=== PATIENT | male | born 1955 | race Caucasian/White ===

== ENCOUNTER 2023-10-16 04:42 | Inpatient (IN) | payer OTHER ==
[2023-10-16 05:02] VITALS: BMI 55.2
[2023-10-16] MEDS: oxyCODONE HCL 5 MG TABLET PO PRN (10:02)
[2023-10-16] MEDS ORDERED: INSULIN (NOVOLOG) ASPART 100 UNITS/ML 10ML VIAL ONE ×2 (17:24→21:09)
[2023-10-16] MEDS: INSULIN ASPART SLIDING SCALE (NOVOLOG) 1 VIAL SQ SCH (17:38)
[2023-10-16] MEDS: RIVAROXABAN 20 MG TABLET PO SCH (17:38)
[2023-10-16 18:02] LABS: N-TERMINAL BNP 1730.9 pg/ml (5-125)
[2023-10-16] MEDS: DOCUSATE SODIUM 100 MG CAPSULE (FP) PO SCH (21:18)
[2023-10-16] MEDS: SENNOSIDES 8.6MG TABLET (FP) PO SCH (21:18)
[2023-10-16] MEDS: POLYETHYLENE GLYCOL (HEALTHYLAX) 3350 17 GM PACKET PO SCH (21:24)
[2023-10-16] MEDS: BUDESONIDE/FORMETEROL FUMARATE 160/4.5 mcg INHALER IH SCH (21:26)
[2023-10-17 09:14] LABS: BASO % 0.6 % (0-2.0); EOS % 2.7 % (0-4.5); HEMATOCRIT 37.8 % (35.4-49); LYMPH % 22.9 % (8-40); MCH 25.2 pg (25.7-33.7); MCHC 31.6 g/dl (32.0-35.9); MEAN CELL VOLUME 79.6 fl (80-96); MEAN PLT VOLUME 7.1 fl (7.5-11.1); NEUT % 68.8 % (42.8-82.8); PLATELET COUNT 337 10^3/uL (134-434); RBC 4.74 M/mm3 (4.00-5.60); RDW 16.1 % (11.9-15.9); WHITE BLOOD COUNT 12.6 K/mm3 (4.0-10.0)
[2023-10-17 09:29] LABS: POTASSIUM 4.1 mmol/L (3.5-5.1)
[2023-10-17 09:32] LABS: CALCIUM 8.6 mg/dL (8.5-10.1)
[2023-10-17 09:33] LABS: ALBUMIN 2.3 g/dl (3.4-5.0); BLOOD UREA NITROGEN 15.1 mg/dL (7-18)
[2023-10-17 09:35] LABS: CREATININE 0.7 mg/dL (0.55-1.3)
[2023-10-17 09:37] LABS: BILIRUBIN,TOTAL 0.4 mg/dL (0.2-1); TOT PROT 6.2 g/dl (6.4-8.2)
[2023-10-17] MEDS: CLOTRIMAZOLE 1% CREAM TP SCH (10:54)
[2023-10-17] MEDS: FUROSEMIDE 40 MG TABLET (FP) PO SCH (10:55)
[2023-10-17] MEDS ORDERED: LISINOPRIL 10 MG TABLET PO SCH (14:00)
[2023-10-17] MEDS ORDERED: FUROSEMIDE 40 MG TABLET (FP) PO SCH (14:00)
[2023-10-17] MEDS ORDERED: CARVEDILOL 25 MG TABLET (FP) PO SCH (14:00)
[2023-10-17] MEDS ORDERED: ALBUTEROL SO4 2.5/IPRATROPIUM 0.5 INH SOL 3 ML VIAL.NEB. NEB PRN (14:10)
[2023-10-17] MEDS: ASPIRIN 81 MG CHEWABLE TABLETS PO SCH (15:27)
[2023-10-17] MEDS ORDERED: INSULIN (NOVOLOG) ASPART 100 UNITS/ML 10ML VIAL ONE (21:59)
[2023-10-17] MEDS: INSULIN (LEVEMIR) 100 UNITS/ML UNITS SQ SCH (22:12)
[2023-10-18 08:02] LABS: POTASSIUM 4.1 mmol/L (3.5-5.1)
[2023-10-18 08:03] LABS: BASO % 0.6 % (0-2.0); CALCIUM 8.9 mg/dL (8.5-10.1); EOS % 2.8 % (0-4.5); HEMATOCRIT 37.2 % (35.4-49); LYMPH % 27.5 % (8-40); MCH 25.9 pg (25.7-33.7); MCHC 32.3 g/dl (32.0-35.9); MEAN CELL VOLUME 80.2 fl (80-96); MEAN PLT VOLUME 6.8 fl (7.5-11.1); NEUT % 63.1 % (42.8-82.8); PLATELET COUNT 327 10^3/uL (134-434); RBC 4.64 M/mm3 (4.00-5.60); RDW 16.1 % (11.9-15.9); WHITE BLOOD COUNT 10.9 K/mm3 (4.0-10.0)
[2023-10-18 08:04] LABS: BLOOD UREA NITROGEN 14.3 mg/dL (7-18)
[2023-10-18 08:07] LABS: CREATININE 0.8 mg/dL (0.55-1.3)
[2023-10-18] MEDS ORDERED: INSULIN (NOVOLOG) ASPART 100 UNITS/ML 10ML VIAL ONE ×2 (18:15→21:23)
[2023-10-19] MEDS: CARVEDILOL 3.125 MG TABLET (FP) PO SCH
[2023-10-19] MEDS: MINERAL OIL/PET HY-PHL TOPICAL OINTMENT 454 GM JAR TP SCH
[2023-10-19 08:40] LABS: BASO % 0.8 % (0-2.0); EOS % 4.3 % (0-4.5); HEMOGLOBIN 11.9 GM/dL (11.7-16.9); LYMPH % 32.1 % (8-40); MCH 25.8 pg (25.7-33.7); MCHC 32.2 g/dl (32.0-35.9); MEAN CELL VOLUME 80.2 fl (80-96); MEAN PLT VOLUME 6.8 fl (7.5-11.1); MONO % 6.5 % (3.8-10.2); NEUT % 56.3 % (42.8-82.8); PLATELET COUNT 320 10^3/uL (134-434); RBC 4.61 M/mm3 (4.00-5.60); RDW 16.3 % (11.9-15.9); WHITE BLOOD COUNT 10.6 K/mm3 (4.0-10.0)
[2023-10-19 08:58] LABS: POTASSIUM 4.2 mmol/L (3.5-5.1)
[2023-10-19 09:04] LABS: CALCIUM 9.1 mg/dL (8.5-10.1)
[2023-10-19 09:05] LABS: ALBUMIN 2.4 g/dl (3.4-5.0); BLOOD UREA NITROGEN 12.6 mg/dL (7-18); MAGNESIUM 1.8 mg/dL (1.8-2.4)
[2023-10-19 09:08] LABS: CREATININE 0.7 mg/dL (0.55-1.3)
[2023-10-19 09:10] LABS: BILIRUBIN,TOTAL 0.4 mg/dL (0.2-1); TOT PROT 6.4 g/dl (6.4-8.2)
[2023-10-19] MEDS ORDERED: INSULIN (NOVOLOG) ASPART 100 UNITS/ML 10ML VIAL ONE ×2 (16:18→21:15)
[2023-10-20 08:21] LABS: POTASSIUM 4.2 mmol/L (3.5-5.1)
[2023-10-20 08:27] LABS: ALBUMIN 2.5 g/dl (3.4-5.0); CALCIUM 8.6 mg/dL (8.5-10.1); MAGNESIUM 1.6 mg/dL (1.8-2.4)
[2023-10-20 08:30] LABS: BASO % 0.4 % (0-2.0); CREATININE 0.7 mg/dL (0.55-1.3); EOS % 3.8 % (0-4.5); HEMATOCRIT 36.1 % (35.4-49); HEMOGLOBIN 12.1 GM/dL (11.7-16.9); LYMPH % 30.7 % (8-40); MCH 26.3 pg (25.7-33.7); MCHC 33.4 g/dl (32.0-35.9); MEAN CELL VOLUME 78.9 fl (80-96); MEAN PLT VOLUME 6.9 fl (7.5-11.1); MONO % 7.3 % (3.8-10.2); NEUT % 57.8 % (42.8-82.8); PLATELET COUNT 318 10^3/uL (134-434); RBC 4.58 M/mm3 (4.00-5.60); RDW 16.3 % (11.9-15.9); WHITE BLOOD COUNT 9.8 K/mm3 (4.0-10.0)
[2023-10-20 08:32] LABS: BILIRUBIN,TOTAL 0.5 mg/dL (0.2-1); TOT PROT 6.1 g/dl (6.4-8.2)
[2023-10-20] MEDS: MAGNESIUM OXIDE 400 MG TABLET (FP) PO SCH (10:00)
[2023-10-20] MEDS ORDERED: INSULIN (NOVOLOG) ASPART 100 UNITS/ML 10ML VIAL ONE (22:05)
[2023-10-21] MEDS: INSULIN ASPART SLIDING SCALE (NOVOLOG) 1 VIAL SQ SCH (17:30)
[2023-10-22] MEDS ORDERED: INSULIN (NOVOLOG) ASPART 100 UNITS/ML 10ML VIAL ONE ×4 (12:10→21:04)
[2023-10-22] MEDS: INSULIN ASPART SLIDING SCALE (NOVOLOG) 1 VIAL SQ SCH (21:47)
[2023-10-22] MEDS: INSULIN (LEVEMIR) 100 UNITS/ML UNITS SQ SCH (21:47)
[2023-10-23 14:26] VITALS: BP 136/83; PULSE 78; RESP 20; TEMP 97.7
== END 2023-10-23 15:47 | DRG 391 ==
LOC: JER 04:42 → JERBED 05:27 → OBSVTOIN 09:55 → J7W 12:21
PROVIDERS: ATTEND Nurse Practitioner Acute Care
DX: K59.00 Constipation, unspecified (principal); R53.2 Functional quadriplegia; Z68.42 Body mass index [BMI] 45.0-49.9, adult; I50.32 Chronic diastolic (congestive) heart failure; Z60.9 Problem related to social environment, unspecified; J44.9 Chronic obstructive pulmonary disease, unspecified; F32.A Depression, unspecified; E78.5 Hyperlipidemia, unspecified; G47.33 Obstructive sleep apnea (adult) (pediatric); I12.9 Hypertensive chronic kidney disease with stage 1 through stage 4 chronic kidney disease, or unspecified chronic kidney disease; E11.22 Type 2 diabetes mellitus with diabetic chronic kidney disease; N18.9 Chronic kidney disease, unspecified; E66.01 Morbid (severe) obesity due to excess calories; K58.9 Irritable bowel syndrome, unspecified; F39 Unspecified mood [affective] disorder; I48.91 Unspecified atrial fibrillation
CPT/HCPCS: 0241U-QW; 36415; 71045-TC-FY; 73630-TC-LT; 80048; 80053; 82272; 82550; 82803; 82962; 83036; 83605; 83735; 83880; 84439; 84443; 84484; 85025; 85610; 85730; 86850; 86900; 86901; 87040; 87635; 93005; 93010; 93306-TC; 94010; 97161-GP; 99285-25; G0378; J0875

== ENCOUNTER 2024-06-22 17:43 | Inpatient (IN) | payer OTHER ==
[2024-06-22 18:12] VITALS: BMI 51.3
[2024-06-22 21:27] LABS: POTASSIUM 4.6 mmol/L (3.5-5.1)
[2024-06-22] MEDS ORDERED: oxyCODONE HCL 5 MG TABLET ONE (21:28)
[2024-06-22 21:29] LABS: ALBUMIN 2.3 g/dl (3.4-5.0); BLOOD UREA NITROGEN 13.6 mg/dL (7-18); CALCIUM 8.6 mg/dL (8.5-10.1)
[2024-06-22 21:32] LABS: CREATININE 0.8 mg/dL (0.55-1.3)
[2024-06-22 21:34] LABS: BILIRUBIN,TOTAL 0.5 mg/dL (0.2-1); TOT PROT 6.4 g/dl (6.4-8.2)
[2024-06-22] MEDS: oxyCODONE HCL 5 MG TABLET PO ONE (21:40)
[2024-06-22 21:54] LABS: BASO % 0.4 % (0-2.0); EOS % 2.1 % (0-4.5); HEMATOCRIT 36.8 % (35.4-49); HEMOGLOBIN 11.9 GM/dL (11.7-16.9); LYMPH % 18.5 % (8-40); MCH 25.1 pg (25.7-33.7); MCHC 32.2 g/dl (32.0-35.9); MEAN CELL VOLUME 78.1 fl (80-96); MEAN PLT VOLUME 6.5 fl (7.5-11.1); MONO % 5.2 % (3.8-10.2); NEUT % 73.8 % (42.8-82.8); PLATELET COUNT 294 10^3/uL (134-434); RBC 4.72 M/mm3 (4.00-5.60); RDW 14.1 % (11.9-15.9)
[2024-06-23] MEDS: ACETAMINOPHEN 1000 MG/100 ML BAG IVPB ONE (02:35)
[2024-06-23] MEDS: oxyCODONE HCL 5 MG TABLET PO PRN (02:48)
[2024-06-23] MEDS: MELATONIN 5 MG TABLETS PO ONE (02:48)
[2024-06-23] MEDS: INSULIN ASPART SLIDING SCALE (NOVOLOG) 1 VIAL SQ SCH (06:26)
[2024-06-23 08:38] LABS: HEMATOCRIT 35.9 % (35.4-49); HEMOGLOBIN 11.8 GM/dL (11.7-16.9); MCH 25.8 pg (25.7-33.7); MEAN CELL VOLUME 78.3 fl (80-96); PLATELET COUNT 280 10^3/uL (134-434); RBC 4.59 M/mm3 (4.00-5.60); RDW 14.2 % (11.9-15.9); WHITE BLOOD COUNT 10.1 K/mm3 (4.0-10.0)
[2024-06-23 09:01] LABS: POTASSIUM 3.4 mmol/L (3.5-5.1)
[2024-06-23 09:04] LABS: ALBUMIN 2.2 g/dl (3.4-5.0); BLOOD UREA NITROGEN 12.1 mg/dL (7-18); CALCIUM 8.6 mg/dL (8.5-10.1); MAGNESIUM 1.8 mg/dL (1.8-2.4)
[2024-06-23 09:06] LABS: CREATININE 0.7 mg/dL (0.55-1.3); PHOSPHOROUS 2.9 mg/dL (2.5-4.9)
[2024-06-23 09:09] LABS: BILIRUBIN,TOTAL 0.5 mg/dL (0.2-1)
[2024-06-23 09:45] LABS: ERYTHROCYTE SEDIMENTATION RATE 42 mm/hr (0-20)
[2024-06-23] MEDS ORDERED: ENOXAPARIN NA (PORCINE) 40 MG/0.4 ML DISP.SYRIN SQ SCH (10:00)
[2024-06-23] MEDS: VANCOMYCIN/WATER FOR INJ (PEG) 1,000 MG/200 ML BAG IVPB ONE (10:18)
[2024-06-23] MEDS: ASPIRIN 81 MG CHEWABLE TABLETS PO SCH (10:36)
[2024-06-23] MEDS: CARVEDILOL 3.125 MG TABLET (FP) PO SCH (10:36)
[2024-06-23] MEDS: PIPERACILLIN/TAZOB 3.375 GM 3.375 GM in DEXTROSE 5%-WATER - 50 ML IVPB ONE (11:33)
[2024-06-23] MEDS: CEFTRIAXONE 1 GM in DEXTROSE 5%-WATER - 50 ML IVPB SCH (11:34)
[2024-06-23] MEDS: POTASSIUM CHLORIDE TABS 20 MEQ TABLET.ER (FP) PO ONE ×2 (18:28→18:30)
[2024-06-23] MEDS: AMINO ACIDS/PROTEIN HYDROLYS 30 ML LIQUID.PKT PO SCH (18:29)
[2024-06-23] MEDS: NYSTATIN 100,000 UNIT/GM TOPICAL CREAM 15 GM TUBE TP SCH (18:29)
[2024-06-23] MEDS: ASCORBIC ACID 500 MG TABLET (FP) GT SCH (22:42)
[2024-06-24 01:12] LABS: EPI CELLS 8 /uL (0-25.1); HYALINE CASTS 0 /uL (0-3.1); URINE APPEARANCE CLOUDY; URINE BACTERIA 45 /uL (0-1359); URINE BILIRUBIN NEGATIVE (NEGATIVE); URINE COLOR YELLOW; URINE GLUCOSE (UA) 3+ (NEGATIVE); URINE KETONE NEGATIVE (NEGATIVE); URINE LEUK ESTERASE 2+ (NEGATIVE); URINE NITRITE NEGATIVE (NEGATIVE); URINE PROTEIN TRACE (NEGATIVE); URINE RBC 464 /uL (0-23.9); URINE UROBILINOGEN 0.2 mg/dL (0.2-1.0); URINE WBC 1631 /uL (0-25.8)
[2024-06-24] MEDS: ACETAMINOPHEN 1000 MG/100 ML BAG IVPB PRN (02:00)
[2024-06-24 09:22] LABS: HEMATOCRIT 37.8 % (35.4-49); MCH 25.5 pg (25.7-33.7); MCHC 31.8 g/dl (32.0-35.9); MEAN CELL VOLUME 80.4 fl (80-96); MEAN PLT VOLUME 7.5 fl (7.5-11.1); PLATELET COUNT 220 10^3/uL (134-434); RDW 14.2 % (11.9-15.9); WHITE BLOOD COUNT 8.4 K/mm3 (4.0-10.0)
[2024-06-24 12:54] LABS: ALBUMIN 2.4 g/dl (3.4-5.0); CALCIUM 8.6 mg/dL (8.5-10.1)
[2024-06-24 12:55] LABS: BLOOD UREA NITROGEN 10.9 mg/dL (7-18); MAGNESIUM 1.9 mg/dL (1.8-2.4)
[2024-06-24 12:58] LABS: CREATININE 0.6 mg/dL (0.55-1.3)
[2024-06-24 12:59] LABS: BILIRUBIN,TOTAL 0.4 mg/dL (0.2-1); TOT PROT 6.4 g/dl (6.4-8.2)
[2024-06-24] MEDS: oxyCODONE HCL 5 MG TABLET PO PRN (16:05)
[2024-06-25 08:50] LABS: HEMATOCRIT 36.1 % (35.4-49); HEMOGLOBIN 11.6 GM/dL (11.7-16.9); MCH 25.5 pg (25.7-33.7); MCHC 32.1 g/dl (32.0-35.9); MEAN CELL VOLUME 79.3 fl (80-96); MEAN PLT VOLUME 7.2 fl (7.5-11.1); PLATELET COUNT 281 10^3/uL (134-434); RBC 4.56 M/mm3 (4.00-5.60); RDW 14.3 % (11.9-15.9); WHITE BLOOD COUNT 7.7 K/mm3 (4.0-10.0)
[2024-06-25 09:21] LABS: POTASSIUM 4.1 mmol/L (3.5-5.1)
[2024-06-25 09:28] LABS: CALCIUM 8.9 mg/dL (8.5-10.1)
[2024-06-25 09:29] LABS: ALBUMIN 2.5 g/dl (3.4-5.0); BLOOD UREA NITROGEN 13.3 mg/dL (7-18); MAGNESIUM 1.8 mg/dL (1.8-2.4)
[2024-06-25 09:32] LABS: CREATININE 0.7 mg/dL (0.55-1.3)
[2024-06-25 09:33] LABS: BILIRUBIN,TOTAL 0.5 mg/dL (0.2-1); TOT PROT 6.4 g/dl (6.4-8.2)
[2024-06-25] MEDS: RIVAROXABAN 20 MG TABLET PO SCH (18:15)
[2024-06-25] MEDS: SENNOSIDES 8.6MG TABLET (FP) PO SCH (22:18)
[2024-06-26] MEDS: BUDESONIDE/FORMETEROL FUMARATE 160/4.5 mcg INHALER IH SCH (12:46)
[2024-06-26] MEDS: AMOX TR/POT CLAV 875MG/125MG TABLETS (FP) PO SCH (14:07)
[2024-06-26] MEDS: MINERAL OIL/PET HY-PHL TOPICAL OINTMENT 454 GM JAR TP SCH (14:48)
[2024-06-26 14:58] VITALS: TEMP 98.4
[2024-06-26] MEDS: COLLAGENASE CLOSTRIDIUM HIST. 30 GRAMS TUBE TP SCH (15:24)
[2024-06-26] MEDS: POLYETHYLENE GLYCOL (HEALTHYLAX) 3350 17 GM PACKET PO SCH (21:08)
[2024-06-26 23:03] VITALS: BP 104/87; PULSE 71; RESP 18
[2024-06-27] MEDS ORDERED: FUROSEMIDE 40 MG TABLET (FP) PO SCH (10:00)
== END 2024-06-27 01:27 | DRG 592 ==
LOC: JER 17:43 → JERBED 23:49 → J8W 06-23 02:01
PROVIDERS: ADMIT Internal Medicine; ATTEND Nurse Practitioner Acute Care
DX: L89.159 Pressure ulcer of sacral region, unspecified stage (principal); R53.2 Functional quadriplegia; Z68.43 Body mass index [BMI] 50.0-59.9, adult; I13.0 Hypertensive heart and chronic kidney disease with heart failure and stage 1 through stage 4 chronic kidney disease, or unspecified chronic kidney disease; J44.9 Chronic obstructive pulmonary disease, unspecified; G47.33 Obstructive sleep apnea (adult) (pediatric); E11.65 Type 2 diabetes mellitus with hyperglycemia; N18.9 Chronic kidney disease, unspecified; E66.01 Morbid (severe) obesity due to excess calories; L89.892 Pressure ulcer of other site, stage 2; I48.91 Unspecified atrial fibrillation; I50.9 Heart failure, unspecified; D72.829 Elevated white blood cell count, unspecified; I89.0 Lymphedema, not elsewhere classified; E78.5 Hyperlipidemia, unspecified
CPT/HCPCS: 36415; 71045-TC-FY; 80053; 81003; 82962; 83036; 83735; 84100; 85025; 85027; 85651; 86140; 87070; 87075; 87076; 87086; 87186; 87205; 87635; 93005; 93010; 94660; 99285-25; J0131

== ENCOUNTER 2024-07-06 19:50 | Inpatient (IN) | payer OTHER ==
[2024-07-06 22:11] LABS: BASO % 0.8 % (0-2.0); EOS % 2.5 % (0-4.5); LYMPH % 24.1 % (8-40); MCH 25.6 pg (25.7-33.7); MCHC 32.3 g/dl (32.0-35.9); MEAN CELL VOLUME 79.3 fl (80-96); MEAN PLT VOLUME 7.4 fl (7.5-11.1); MONO % 4.7 % (3.8-10.2); NEUT % 67.9 % (42.8-82.8); PLATELET COUNT 222 10^3/uL (134-434); RBC 4.67 M/mm3 (4.00-5.60); RDW 15.1 % (11.9-15.9); WHITE BLOOD COUNT 8.5 K/mm3 (4.0-10.0)
[2024-07-06 22:21] LABS: INR 1.74 (0.83-1.09); POTASSIUM 3.7 mmol/L (3.5-5.1); PROTHROMBIN TIME (PATIENT) 19.7 SEC (9.7-13.0)
[2024-07-06 22:23] LABS: ACTIVATED PTT 34.4 SECONDS (25.2-36.5); CALCIUM 8.3 mg/dL (8.5-10.1)
[2024-07-06 22:24] LABS: ALBUMIN 2.6 g/dl (3.4-5.0); BLOOD UREA NITROGEN 13.9 mg/dL (7-18); MAGNESIUM 1.4 mg/dL (1.8-2.4)
[2024-07-06 22:27] LABS: CREATININE 0.7 mg/dL (0.55-1.3)
[2024-07-06 22:28] LABS: BILIRUBIN,TOTAL 0.3 mg/dL (0.2-1)
[2024-07-06 22:29] LABS: TOT PROT 6.2 g/dl (6.4-8.2)
[2024-07-06 22:32] LABS: N-TERMINAL BNP 1042.4 pg/ml (5-125)
[2024-07-06] MEDS ORDERED: FUROSEMIDE 40 MG/4 ML INJECTABLE VIAL ONE (22:51)
[2024-07-06] MEDS ORDERED: MAGNESIUM SULFATE IN WATER 2 GM/50 ML IVPB IVPB ONE (22:51)
[2024-07-06] MEDS: FUROSEMIDE 40 MG/4 ML INJECTABLE VIAL IVPUSH ONE (22:56)
[2024-07-06] MEDS: MAGNESIUM SULFATE IN WATER 2 GM/50 ML IVPB IVPB ONE (23:42)
[2024-07-07 00:05] LABS: EPI CELLS 2 /uL (0-25.1); HYALINE CASTS 0 /uL (0-3.1); URINE APPEARANCE CLEAR; URINE BACTERIA 12 /uL (0-1359); URINE BILIRUBIN NEGATIVE (NEGATIVE); URINE COLOR YELLOW; URINE GLUCOSE (UA) NEGATIVE (NEGATIVE); URINE KETONE NEGATIVE (NEGATIVE); URINE LEUK ESTERASE NEGATIVE (NEGATIVE); URINE NITRITE NEGATIVE (NEGATIVE); URINE PROTEIN NEGATIVE (NEGATIVE); URINE RBC 143 /uL (0-23.9); URINE UROBILINOGEN 0.2 mg/dL (0.2-1.0); URINE WBC 3 /uL (0-25.8)
[2024-07-07] MEDS ORDERED: oxyCODONE HCL 5 MG TABLET ONE (01:06)
[2024-07-07] MEDS: oxyCODONE HCL 5 MG TABLET PO PRN (01:09)
[2024-07-07] MEDS ORDERED: FUROSEMIDE 40 MG TABLET (FP) PO SCH (10:00)
[2024-07-07] MEDS: FUROSEMIDE 40 MG/4 ML INJECTABLE VIAL IVPUSH SCH (10:17)
[2024-07-07] MEDS: FUROSEMIDE 40 MG TABLET (FP) PO SCH (10:18)
[2024-07-07] MEDS: ASPIRIN 81 MG CHEWABLE TABLETS PO SCH (10:18)
[2024-07-07] MEDS: CARVEDILOL 3.125 MG TABLET (FP) PO SCH (10:19)
[2024-07-07 11:58] LABS: HEMATOCRIT 37.4 % (35.4-49); HEMOGLOBIN 12.4 GM/dL (11.7-16.9); MCH 26.3 pg (25.7-33.7); MCHC 33.3 g/dl (32.0-35.9); MEAN PLT VOLUME 7.4 fl (7.5-11.1); PLATELET COUNT 232 10^3/uL (134-434); RBC 4.73 M/mm3 (4.00-5.60); RDW 14.7 % (11.9-15.9); WHITE BLOOD COUNT 9.2 K/mm3 (4.0-10.0)
[2024-07-07 12:26] LABS: POTASSIUM 3.2 mmol/L (3.5-5.1)
[2024-07-07 12:28] LABS: ALBUMIN 2.6 g/dl (3.4-5.0); BLOOD UREA NITROGEN 10.2 mg/dL (7-18); CALCIUM 8.3 mg/dL (8.5-10.1); MAGNESIUM 1.6 mg/dL (1.8-2.4)
[2024-07-07 12:32] LABS: CREATININE 0.6 mg/dL (0.55-1.3); PHOSPHOROUS 2.9 mg/dL (2.5-4.9)
[2024-07-07 12:33] LABS: BILIRUBIN,TOTAL 0.7 mg/dL (0.2-1); TOT PROT 6.4 g/dl (6.4-8.2)
[2024-07-07 15:42] LABS: ARTERIAL BLD GAS O2 SATURATION 95.6 % (95-98); ARTERIAL BLOOD GAS BASE EXCESS 9.2 mmol/L (-2-2); ARTERIAL BLOOD GAS PO2 80.1 mmHg (80-100); ARTERIAL BLOOD GAS pH 7.405 (7.350-7.450)
[2024-07-07 15:43] LABS: ALLENS TEST POSITIVE
[2024-07-07 16:28] VITALS: RESP 20; BMI 51.7
[2024-07-07] MEDS: POTASSIUM CHLORIDE ORAL LIQUID 20 MEQ/15 ML PO ONE (16:58)
[2024-07-07] MEDS: RIVAROXABAN 20 MG TABLET PO SCH (17:06)
[2024-07-08 10:31] LABS: HEMATOCRIT 37.9 % (35.4-49); HEMOGLOBIN 12.1 GM/dL (11.7-16.9); MCH 25.7 pg (25.7-33.7); MCHC 31.8 g/dl (32.0-35.9); MEAN CELL VOLUME 80.8 fl (80-96); MEAN PLT VOLUME 7.3 fl (7.5-11.1); PLATELET COUNT 215 10^3/uL (134-434); RDW 15.2 % (11.9-15.9); WHITE BLOOD COUNT 8.6 K/mm3 (4.0-10.0)
[2024-07-08 10:48] LABS: POTASSIUM 3.4 mmol/L (3.5-5.1)
[2024-07-08 10:53] LABS: BLOOD UREA NITROGEN 15.4 mg/dL (7-18); CALCIUM 8.9 mg/dL (8.5-10.1); MAGNESIUM 1.7 mg/dL (1.8-2.4)
[2024-07-08 10:56] LABS: CREATININE 0.7 mg/dL (0.55-1.3); PHOSPHOROUS 3.3 mg/dL (2.5-4.9)
[2024-07-09 07:22] VITALS: BP 110/56; PULSE 66; TEMP 97.7
== END 2024-07-09 15:02 | DRG 291 ==
LOC: JER 19:50 → JERBED 22:41 → OBSVTOIN 22:41 → J5S 07-07 04:49 → J6S 07-07 11:20
PROVIDERS: ADMIT Internal Medicine; ATTEND Internal Medicine
DX: I13.0 Hypertensive heart and chronic kidney disease with heart failure and stage 1 through stage 4 chronic kidney disease, or unspecified chronic kidney disease (principal); I50.33 Acute on chronic diastolic (congestive) heart failure; R53.2 Functional quadriplegia; Z68.43 Body mass index [BMI] 50.0-59.9, adult; J96.11 Chronic respiratory failure with hypoxia; E78.00 Pure hypercholesterolemia, unspecified; K58.9 Irritable bowel syndrome, unspecified; I48.91 Unspecified atrial fibrillation; E66.01 Morbid (severe) obesity due to excess calories; G47.33 Obstructive sleep apnea (adult) (pediatric); E83.42 Hypomagnesemia; E11.40 Type 2 diabetes mellitus with diabetic neuropathy, unspecified; J44.9 Chronic obstructive pulmonary disease, unspecified; I89.0 Lymphedema, not elsewhere classified; L98.429 Non-pressure chronic ulcer of back with unspecified severity; E87.70 Fluid overload, unspecified; E11.22 Type 2 diabetes mellitus with diabetic chronic kidney disease; N18.9 Chronic kidney disease, unspecified; Z74.01 Bed confinement status; Z86.718 Personal history of other venous thrombosis and embolism; Z96.641 Presence of right artificial hip joint
CPT/HCPCS: 0241U-QW; 36415; 36600; 71045-TC-FY; 80048; 80053; 81003; 82803; 82962; 83735; 83880; 84100; 84484; 85025; 85027; 85610; 85730; 86850; 86900; 86901; 87086; 87481; 93005; 93010; 94660; 99291